=== PATIENT | female | born 1975 | race Caucasian/White ===

== ENCOUNTER 2018-05-11 12:57 | Outpatient (CLI) | payer BC ==
--- NOTE | 2018-05-11 13:44 | RAD ---
LEFT SHOULDER 3 VIEWS: Date: 05/11/18 HISTORY: Left shoulder pain. FINDINGS/IMPRESSION: No fracture, dislocation, or bony destruction is identified. No significant osteophytosis is seen. POS: OFF
== END 2018-05-11 12:58 | disposition home or self-care (01) ==
LOC: BICRAD 12:57
PROVIDERS: ATTEND Internal Medicine Rheumatology
DX: M25.512 Pain in left shoulder (principal)

== ENCOUNTER → 2020-12-11 | Day surgery (SDC) | payer BC ==
[~2020-12-11] MED LIST: AFRIN NASAL MIST 15 ML BOT ONE
== END ==
LOC: ENDO/OP 12:42
PROVIDERS: ATTEND Internal Medicine Gastroenterology
DX: R13.10 Dysphagia, unspecified (principal); K75.81 Nonalcoholic steatohepatitis (NASH); K58.9 Irritable bowel syndrome, unspecified; K21.00 Gastro-esophageal reflux disease with esophagitis, without bleeding; M19.90 Unspecified osteoarthritis, unspecified site; J45.909 Unspecified asthma, uncomplicated; E78.00 Pure hypercholesterolemia, unspecified; M35.9 Systemic involvement of connective tissue, unspecified; F17.210 Nicotine dependence, cigarettes, uncomplicated; Z88.1 Allergy status to other antibiotic agents; Z88.2 Allergy status to sulfonamides; Z88.5 Allergy status to narcotic agent; Z88.8 Allergy status to other drugs, medicaments and biological substances; Z91.041 Radiographic dye allergy status; Z91.030 Bee allergy status; Z91.018 Allergy to other foods; Z79.899 Other long term (current) drug therapy
CPT/HCPCS: 91010

== ENCOUNTER 2021-03-05 07:26 | Outpatient (CLI) | payer BC | END 2021-03-05 07:27 | disposition home or self-care (01) | LOC: NM 07:26 | PROVIDERS: ATTEND Physician Assistant Medical | DX: R10.13 Epigastric pain (principal); K22.0 Achalasia of cardia | CPT/HCPCS: 78227; A9537 ==

== ENCOUNTER 2021-10-31 08:27 | Outpatient (CLI) | payer BC | END 2021-10-31 08:28 | disposition home or self-care (01) | LOC: NM 08:27 | PROVIDERS: ATTEND Physician Assistant Medical | DX: R10.9 Unspecified abdominal pain (principal); K64.8 Other hemorrhoids; K59.03 Drug induced constipation; R11.2 Nausea with vomiting, unspecified; R68.81 Early satiety; Z79.899 Other long term (current) drug therapy | CPT/HCPCS: 78264; A9541 ==

== ENCOUNTER 2022-02-26 10:07 | Outpatient (CLI) | payer BC | END 2022-02-26 10:08 | disposition home or self-care (01) | LOC: EKG 10:07 | PROVIDERS: ATTEND Physician Assistant Medical | DX: K31.84 Gastroparesis (principal) | CPT/HCPCS: 93005; 93010 ==

== ENCOUNTER 2022-06-15 10:38 | Outpatient (CLI) | payer BC | END 2022-06-15 10:39 | disposition home or self-care (01) | LOC: SCSRAD 10:38 | PROVIDERS: ATTEND Internal Medicine Rheumatology | DX: M17.0 Bilateral primary osteoarthritis of knee (principal) | CPT/HCPCS: 73565 ==

== ENCOUNTER 2022-08-28 09:19 | Emergency (ER) | payer BC ==
[2022-08-28] MEDS ORDERED: fentaNYL 50 mcg/mL 1 mL Vial ONE ×2 (11:02→11:47)
[2022-08-28] MEDS ORDERED: cloNIDine 0.1 MG TAB ONE (11:47)
== END 2022-08-28 12:15 | disposition home or self-care (01) ==
LOC: ERS 09:19
DX: G89.29 Other chronic pain (principal); M54.50 Low back pain, unspecified; K21.9 Gastro-esophageal reflux disease without esophagitis; F17.210 Nicotine dependence, cigarettes, uncomplicated
CPT/HCPCS: 96372; 99283; J3010

== ENCOUNTER 2022-12-03 11:23 | Outpatient (CLI) | payer BC ==
[2022-12-03 13:06] LABS: Hemoglobin 14.1 g/dL (12.0-15.5); Mean Corpuscular HGB CONC 34.3 g/dL (32.0-36.0); Mean Corpuscular Volume 93.4 fl (81.6-98.3); Mean Platelet Volume 10.8 fl (7.4-10.4); Platelet Count 221 10x3/uL (150-450); RBC Distribution Width 13.2 % (11.5-14.5); White Blood Cell (WBC) Count 7.5 10x3/uL (3.5-10.5)
[2022-12-03 13:20] LABS: PTT 27.3 sec (22.0-33.0); Prothrombin Time 10.6 sec (9.5-12.1)
[2022-12-03 13:54] LABS: ALT (SGPT) 18 U/L (8-55); AST (SGOT) 24 U/L (5-34); Albumin 4.4 g/dL (3.5-5.0); Alkaline Phosphatase 67 U/L (40-110); Anion Gap 13 mmol/L (10-20); BUN (Urea Nitrogen) 12 mg/dL (7.0-18.7); Bilirubin, Direct 0.1 mg/dL (0.1-0.3); Bilirubin, Total 0.3 mg/dL (0.2-1.2); Calc. Creatinine Clearance 0 mL/min (70-130); Calcium 9.6 mg/dL (7.8-10.44); Carbon Dioxide 27 mmol/L (22-29); Chloride 104 mmol/L (98-107); Estimated GFR 103; Glucose 99 mg/dL (70-105); Potassium 4.4 mmol/L (3.5-5.1); Protein, Total 6.9 g/dL (6.0-8.3); Sodium 140 mmol/L (136-145)
== END 2022-12-03 11:24 | disposition home or self-care (01) ==
LOC: LABBT 11:23
PROVIDERS: ATTEND Neurological Surgery
DX: Z01.812 Encounter for preprocedural laboratory examination (principal); M54.16 Radiculopathy, lumbar region
CPT/HCPCS: 80048; 80076; 85027; 85610; 85730

== ENCOUNTER 2022-12-09 05:48 | Day surgery (SDC) | payer BC ==
[2022-12-03 12:04] VITALS: BMI 28.8
[2022-12-09] MEDS ORDERED: Bupivacaine HCl 0.5%/Epinephrine 1:200,000/PF 30 ml Vial ONE (06:09)
[2022-12-09] MEDS ORDERED: Thrombin 5000 UNITS/5 ML VIAL ONE (06:09)
[2022-12-09] MEDS ORDERED: Fentanyl 250 MCG/5 ML VIAL ONE (06:11)
[2022-12-09] MEDS ORDERED: Vancomycin 1 GM/200 ML (FROZEN) BAG ONE (06:46)
[2022-12-09] MEDS ORDERED: Midazolam HCl 2 mg/2 ml Vial ONE ×2 (06:53→07:08)
[2022-12-09] MEDS ORDERED: Famotidine/PF 20 mg/2ml Vial ONE (06:56)
[2022-12-09] MEDS ORDERED: Promethazine HCl 25 MG/ML VIAL ONE (06:56)
[2022-12-09] MEDS ORDERED: Ketamine 50 MG/ML (10ML VIAL) ONE (07:05)
[2022-12-09] MEDS ORDERED: Dexamethasone 20 MG/5 ML VIAL ONE (07:08)
[2022-12-09] MEDS ORDERED: Lidocaine 1% PF 5 ML VIAL ONE (07:08)
[2022-12-09] MEDS ORDERED: Metoclopramide HCl 10 MG/2 ML VIAL ONE (07:08)
[2022-12-09] MEDS ORDERED: Rocuronium Bromide 10 MG/ML (10ML VIAL) ONE (07:08)
[2022-12-09] MEDS ORDERED: Ketorolac Tromethamine 30 MG/ML VIAL ONE (07:08)
[2022-12-09] MEDS ORDERED: PROPOFOL 200 MG/20 ML VIAL ONE (07:08)
[2022-12-09] MEDS ORDERED: Albuterol HFA (OR) 200 PUFF INH ONE (07:08)
[2022-12-09] MEDS ORDERED: SUGAMMADEX SODIUM 200 MG/2 ML VIAL ONE (08:17)
[2022-12-09] MEDS ORDERED: fentaNYL 50 mcg/mL 1 mL Vial ONE ×2 (08:50→08:59)
[2022-12-09] MEDS ORDERED: HYDROmorphone 0.5 MG/0.5 ML SYRINGE ONE ×4 (09:09→09:44)
[2022-12-09] MEDS ORDERED: HYDROcodone/Acetaminophen 5/325 mg Tablet ONE (10:32)
== END 2022-12-09 12:00 | disposition home or self-care (01) ==
LOC: SDC 05:48
PROVIDERS: ATTEND Neurological Surgery
PROC: 0SB20ZZ Excision of Lumbar Vertebral Disc, Open Approach (ICD-10-PCS; principal; 2022-12-09)
PROC: 01NB0ZZ Release Lumbar Nerve, Open Approach (ICD-10-PCS; principal; 2022-12-09)
DX: M54.16 Radiculopathy, lumbar region (principal); G89.4 Chronic pain syndrome; J45.909 Unspecified asthma, uncomplicated; F41.8 Other specified anxiety disorders; I10 Essential (primary) hypertension; K21.9 Gastro-esophageal reflux disease without esophagitis; E78.5 Hyperlipidemia, unspecified; M19.90 Unspecified osteoarthritis, unspecified site; G43.909 Migraine, unspecified, not intractable, without status migrainosus; Z79.82 Long term (current) use of aspirin; Z79.899 Other long term (current) drug therapy; Z88.2 Allergy status to sulfonamides; Z88.1 Allergy status to other antibiotic agents; Z88.8 Allergy status to other drugs, medicaments and biological substances; Z91.011 Allergy to milk products; Z91.018 Allergy to other foods
CPT/HCPCS: 36416; 87070; 87205; J1100; J1170; J1885; J2250; J2550; J2704; J2765; J3010; J3370-JW; S0028

== ENCOUNTER 2023-04-23 15:17 | Outpatient (CLI) | payer BC | END 2023-04-23 15:18 | disposition home or self-care (01) | LOC: BICULT 15:17 | PROVIDERS: ATTEND Family Medicine | DX: R79.89 Other specified abnormal findings of blood chemistry (principal); E04.2 Nontoxic multinodular goiter | CPT/HCPCS: 76536 ==

== ENCOUNTER 2023-05-21 12:37 | Day surgery (SDC) | payer BC ==
[2023-05-21] MEDS ORDERED: Lidocaine 1% PF 5 ML VIAL ONE (13:26)
[2023-05-21] MEDS ORDERED: Sodium Bicarbonate 0.5 MEQ/ML SDV 10 ML ONE (13:26)
[2023-05-21 16:22] VITALS: BP 123/75; TEMP 97.8
== END 2023-05-21 14:30 | disposition home or self-care (01) ==
LOC: ULT 12:37
PROVIDERS: ATTEND Family Medicine
PROC: 0G9G3ZX Drainage of Left Thyroid Gland Lobe, Percutaneous Approach, Diagnostic (ICD-10-PCS; principal; 2023-05-21)
DX: E04.1 Nontoxic single thyroid nodule (principal)
CPT/HCPCS: 10005; 88173

== ENCOUNTER 2023-06-04 08:30 | Day surgery (SDC) | payer BC ==
[~2023-06-04 08:30] MED LIST changes: -AFRIN NASAL MIST 15 ML BOT ONE; +Cosyntropin 250 MCG VIAL SLOW IVP SCH
[2023-06-04 09:05] VITALS: BP 131/73; TEMP 97.6
[2023-06-04] MEDS ORDERED: Sterile Water 0 ML ONE (09:06)
== END 2023-06-04 10:59 | disposition home or self-care (01) ==
LOC: ONC/OP 08:30
PROVIDERS: ATTEND Internal Medicine Rheumatology
DX: E27.40 Unspecified adrenocortical insufficiency (principal); Z88.8 Allergy status to other drugs, medicaments and biological substances; Z91.048 Other nonmedicinal substance allergy status; Z91.030 Bee allergy status; Z88.5 Allergy status to narcotic agent; Z88.1 Allergy status to other antibiotic agents; Z91.041 Radiographic dye allergy status; Z91.011 Allergy to milk products; Z88.2 Allergy status to sulfonamides; Z91.038 Other insect allergy status; Z91.09 Other allergy status, other than to drugs and biological substances
CPT/HCPCS: 36415; 80400; 82024; 96374; J0834

== ENCOUNTER 2024-03-01 07:31 | Outpatient (CLI) | payer BC | END 2024-03-01 07:32 | disposition home or self-care (01) | LOC: BICULT 07:31 | PROVIDERS: ATTEND Family Medicine | DX: R10.11 Right upper quadrant pain (principal) | CPT/HCPCS: 76700 ==

== ENCOUNTER 2025-04-04 13:01 | Outpatient (CLI) | payer BC | END 2025-04-04 13:02 | disposition home or self-care (01) | LOC: SCSRAD 13:01 | PROVIDERS: ATTEND Family Medicine | DX: M79.674 Pain in right toe(s) (principal); S92.535A Nondisplaced fracture of distal phalanx of left lesser toe(s), initial encounter for closed fracture ==

== ENCOUNTER 2025-04-30 11:07 | Day surgery (SDC) | payer BC ==
[2025-04-27 13:51] VITALS: BMI 27.1
[2025-04-30] MEDS ORDERED: Sevoflurane 250 ML INH ANEST BOTTLE ONE (11:58)
[2025-04-30] MEDS ORDERED: Ondansetron PF 4 MG/2 ML Vial ONE (13:20)
[2025-04-30] MEDS ORDERED: PROPOFOL 200 MG/20 ML VIAL ONE (13:20)
[2025-04-30] MEDS ORDERED: Lidocaine 1% PF 5 ML VIAL ONE (13:20)
[2025-04-30] MEDS ORDERED: fentaNYL PF 100 MCG/2 ML SYRINGE ONE (14:52)
== END 2025-04-30 15:58 | disposition home or self-care (01) ==
LOC: SJX 11:07 → EDSTATUS 13:00 → SJX 15:58
PROVIDERS: ATTEND Internal Medicine Rheumatology
DX: G72.9 Myopathy, unspecified (principal); E03.9 Hypothyroidism, unspecified; F90.9 Attention-deficit hyperactivity disorder, unspecified type; M79.674 Pain in right toe(s); E66.9 Obesity, unspecified; Z68.27 Body mass index [BMI] 27.0-27.9, adult; Z90.710 Acquired absence of both cervix and uterus; Z91.041 Radiographic dye allergy status; Z91.030 Bee allergy status; Z88.8 Allergy status to other drugs, medicaments and biological substances; Z91.0110 Allergy to milk products, unspecified; Z88.5 Allergy status to narcotic agent; Z88.2 Allergy status to sulfonamides; Z91.048 Other nonmedicinal substance allergy status; Z79.899 Other long term (current) drug therapy
CPT/HCPCS: J1100; J2405; J2704